=== PATIENT | male | born 2000 | race Caucasian/White ===

== ENCOUNTER 2019-04-16 15:50 | Inpatient (IN) | payer OTHER ==
[~2019-04-16] VITALS: Ht 175.3 cm; Wt 53.5 kg
[2019-04-16 16:15] VITALS: BP 129/70
[2019-04-16] MEDS ORDERED: ONDANSETRON HCL 4 MG TABLET PO PRN (18:15)
[2019-04-16] MEDS ORDERED: ACETAMINOPHEN 325 MG TABLET PO PRN (18:15)
[2019-04-16] MEDS ORDERED: MELATONIN 5 MG TABLET PO PRN (18:15)
[2019-04-16] MEDS ORDERED: HYDROCODONE/ACETAMINOPHEN 5-325 MG TABLET PO PRN (18:15)
[2019-04-16] MEDS ORDERED: HYDROCODONE/ACETAMINOPHEN 10-325 MG TABLET PO PRN (18:15)
[2019-04-16] MEDS: DOCUSATE SODIUM 100 MG CAPSULE PO SCH (20:53)
[2019-04-16] MEDS: SENNA 187 MG TABLET PO SCH (20:54)
[2019-04-16] MEDS: ERYTHROMYCIN 0.5% 3.5 GM TUBE OPHTHALMIC OINTMENT OS SCH (20:56)
[2019-04-16] MEDS: ATROPINE SULFATE 1% 15 ML OPHTHALMIC SOLUTION OS SCH (20:56)
[2019-04-16] MEDS: MUPIROCIN CALCIUM 2% 22 GM OINTMENT NASAL SCH (20:56)
[2019-04-16] MEDS: CHLORHEXIDINE GLUCONATE 0.12% 15 ML UDCUP ORAL RINSE PO SCH (20:59)
[2019-04-16] MEDS: PrednisoLONE ACETATE 1% 5 ML OPHTHALMIC SUSPENSION OS SCH (20:59)
[2019-04-16] MEDS ORDERED: BACITRACIN 0.9 GM PACKET OINTMENT TP SCH (21:00)
[2019-04-17] VITALS: BP 126/84
[2019-04-17] MEDS: MINERAL OIL/PETROLATUM,WHITE PF 3.5 GM OPHTHALMIC OINTMENT OS SCH ×4 (00:06→18:18)
[2019-04-17 07:16] LABS: BASOPHILS % (AUTO) 1.4 % (0.0-2.0); EOSINOPHILS % (AUTO) 1.6 % (1.0-6.0); HEMATOCRIT 33.7 % (41-53); HEMOGLOBIN 11.7 g/dL (13.5-17.5); LYMPHOCYTES # (AUTO) 1.5 K/uL (1.0-4.8); LYMPHOCYTES % (AUTO) 15.8 % (22.0-44.0); MEAN CORPUSCULAR HEMOGLOBIN 30.9 pg (26.0-34.0); MEAN CORPUSCULAR HGB CONC 34.7 G/dL (31.0-37.0); MEAN CORPUSCULAR VOLUME 89 fL (80-100); MONOCYTES % (AUTO) 10.9 % (2.0-9.0); NEUTROPHILS # (AUTO) 6.5 K/uL (1.8-7.7); NEUTROPHILS % (AUTO) 70.3 % (40.0-70.0); PLATELET COUNT (AUTO) 689 K/uL (150-450); RED BLOOD CELL COUNT(AUTO) 3.79 MIL/uL (4.50-5.90); RED CELL DISTRIBUTION WIDTH 13.8 % (11.5-14.5)
[2019-04-17 07:45] VITALS: BP 113/70
[2019-04-17 07:48] LABS: ALANINE AMINOTRANSFERASE 48 U/L (12-78); ALBUMIN 3.1 g/dL (3.4-5.0); ALKALINE PHOSPHATASE 121 U/L (46-116); ANION GAP 5 mmol/L (8-16); ASPARTATE AMINOTRANSFERASE 50 U/L (15-37); BILIRUBIN,TOTAL 0.3 mg/dL (0.1-1.0); CALCIUM, TOTAL 8.7 mg/dL (8.8-10.5); CARBON DIOXIDE 27 mmol/L (22-29); CHLORIDE 104 mmol/L (98-107); GLOMERULAR FILTR. RATE CALC > 60 mL/min (>60); GLUCOSE,RANDOM 104 mg/dL (70-110); POTASSIUM 4.1 mmol/L (3.5-5.1); SODIUM SERUM 136 mmol/L (136-145); TOTAL PROTEIN, SERUM 7.1 g/dL (6.4-8.2); UREA NITROGEN, BLOOD 16 mg/dL (7-18)
[2019-04-17] MEDS: ATROPINE SULFATE 1% 15 ML OPHTHALMIC SOLUTION OS SCH (08:26)
[2019-04-17] MEDS: MUPIROCIN CALCIUM 2% 22 GM OINTMENT NASAL SCH ×2 (08:26→16:56)
[2019-04-17] MEDS: ERYTHROMYCIN 0.5% 3.5 GM TUBE OPHTHALMIC OINTMENT OS SCH ×3 (08:27→16:55)
[2019-04-17] MEDS: CHLORHEXIDINE GLUCONATE 0.12% 15 ML UDCUP ORAL RINSE PO SCH ×3 (08:27→16:00)
[2019-04-17] MEDS: PrednisoLONE ACETATE 1% 5 ML OPHTHALMIC SUSPENSION OS SCH ×3 (08:27→16:56)
[2019-04-17] MEDS: DOCUSATE SODIUM 100 MG CAPSULE PO SCH (08:38)
[2019-04-17] MEDS: POLYETHYLENE GLYCOL 3350 17 GM PACKET PO SCH (08:38)
[2019-04-17] MEDS ORDERED: ENOXAPARIN SODIUM 40 MG/0.4 ML PF SYRINGE SQ SCH (09:00)
[2019-04-17] MEDS: BACITRACIN 28.4 GM OINTMENT TP SCH ×3 (09:24→16:55)
[2019-04-17 17:19] VITALS: BP 110/62
[2019-04-18] MEDS: MINERAL OIL/PETROLATUM,WHITE PF 3.5 GM OPHTHALMIC OINTMENT OS SCH ×4 (06:00→18:04)
[2019-04-18 09:00] VITALS: BP 120/59
[2019-04-18] MEDS: DOCUSATE SODIUM 100 MG CAPSULE PO SCH ×3 (09:00→21:00)
[2019-04-18] MEDS: CHLORHEXIDINE GLUCONATE 0.12% 15 ML UDCUP ORAL RINSE PO SCH ×4 (09:00→21:00)
[2019-04-18] MEDS: POLYETHYLENE GLYCOL 3350 17 GM PACKET PO SCH (09:00)
[2019-04-18] MEDS: PrednisoLONE ACETATE 1% 5 ML OPHTHALMIC SUSPENSION OS SCH ×5 (09:25→21:35)
[2019-04-18] MEDS: ATROPINE SULFATE 1% 15 ML OPHTHALMIC SOLUTION OS SCH ×3 (09:25→21:36)
[2019-04-18] MEDS: MUPIROCIN CALCIUM 2% 22 GM OINTMENT NASAL SCH ×4 (09:25→21:35)
[2019-04-18] MEDS: ERYTHROMYCIN 0.5% 3.5 GM TUBE OPHTHALMIC OINTMENT OS SCH ×5 (09:26→21:35)
[2019-04-18] MEDS: ASPIRIN 325 MG TABLET PO SCH (09:28)
[2019-04-18] MEDS: BACITRACIN 28.4 GM OINTMENT TP SCH ×5 (10:10→21:35)
[2019-04-18] MEDS: OXYBUTYNIN CHLORIDE 5 MG TABLET PO SCH ×2 (16:16→21:35)
[2019-04-18 17:53] LABS: APPEARANCE,URINE CLOUDY (CLEAR); BILIRUBIN,URINE NEGATIVE (NEGATIVE); GLUCOSE, URINE (UA) NEGATIVE (NEGATIVE); KETONES,URINE NEGATIVE (NEGATIVE); LEUKOCYTE ESTERASE ,URINE MODERATE (NEGATIVE); NITRATE,URINE POSITIVE (NEGATIVE); OCCULT BLOOD,URINE LARGE (NEGATIVE); PROTEIN,URINE SEE CONFIRM (NEGATIVE)
[2019-04-18] MEDS ORDERED: BELLADONNA ALK PR PRN (18:00)
[2019-04-18] MEDS ORDERED: OPIUM PR PRN (18:00)
[2019-04-18 19:00] LABS: SULFOSALICYLIC ACID,URINE 4+ (Negative)
[2019-04-18 19:01] LABS: BACTERIA,URINE Many /HPF (None Seen); RBC,URINE >100 /HPF (0-2); SQUAMOUS EPITHELIAL CELL,UR Few /LPF (None Seen)
[2019-04-18 20:26] VITALS: BP 125/65
[2019-04-18] MEDS: SENNA 187 MG TABLET PO SCH ×2 (21:00)
[2019-04-19] VITALS: BP 116/64
[2019-04-19] MEDS: MINERAL OIL/PETROLATUM,WHITE PF 3.5 GM OPHTHALMIC OINTMENT OS SCH ×5 (00:16→23:35)
[2019-04-19 08:25] VITALS: BP 113/59
[2019-04-19] MEDS: ASPIRIN 325 MG TABLET PO SCH (09:00)
[2019-04-19] MEDS: CHLORHEXIDINE GLUCONATE 0.12% 15 ML UDCUP ORAL RINSE PO SCH ×3 (09:00→21:00)
[2019-04-19] MEDS: MUPIROCIN CALCIUM 2% 22 GM OINTMENT NASAL SCH ×3 (09:00→22:03)
[2019-04-19] MEDS: ERYTHROMYCIN 0.5% 3.5 GM TUBE OPHTHALMIC OINTMENT OS SCH ×4 (09:00→22:03)
[2019-04-19] MEDS: DOCUSATE SODIUM 100 MG CAPSULE PO SCH ×2 (09:00→21:00)
[2019-04-19] MEDS: PrednisoLONE ACETATE 1% 5 ML OPHTHALMIC SUSPENSION OS SCH ×4 (09:00→22:04)
[2019-04-19] MEDS: POLYETHYLENE GLYCOL 3350 17 GM PACKET PO SCH (09:00)
[2019-04-19] MEDS: BACITRACIN 28.4 GM OINTMENT TP SCH ×4 (09:00→22:05)
[2019-04-19] MEDS: ATROPINE SULFATE 1% 15 ML OPHTHALMIC SOLUTION OS SCH ×2 (09:00→22:03)
[2019-04-19] MEDS: OXYBUTYNIN CHLORIDE 5 MG TABLET PO SCH ×3 (09:23→22:04)
[2019-04-19] MEDS ORDERED: IOVERSOL 350 MG/ML 150 ML VIAL ONE (14:15)
[2019-04-19] MEDS ORDERED: IOVERSOL 350 MG/ML 100 ML VIAL ONE (14:16)
[2019-04-19] MEDS ORDERED: SODIUM CHLORIDE 0.9% 250 ML IV ONE ×2 (15:31→15:41)
[2019-04-19] MEDS ORDERED: IOVERSOL 320 MG/ML 100 ML VIAL ONE ×2 (16:04)
[2019-04-19] MEDS: CefTRIAXone 1 GM/DEXTROSE 50 ML IV SCH (16:22)
[2019-04-19] MEDS ORDERED: IOVERSOL 320 MG/ML 50 ML VIAL ONE (16:38)
[2019-04-19] MEDS ORDERED: SODIUM CHLORIDE 0.9% 500 ML IV ONE (16:41)
[2019-04-19] MEDS ORDERED: SODIUM CHLORIDE 0.9% 1,000 ML ONE (16:46)
[2019-04-19 16:55] VITALS: BP 118/60
[2019-04-19] MEDS: KETOROLAC TROMETHAMINE 30 MG/ML VIAL IVP SCH ×2 (16:55→23:45)
[2019-04-19] MEDS: SENNA 187 MG TABLET PO SCH (21:00)
[2019-04-20 00:25] VITALS: BP 107/65
[2019-04-20] MEDS: KETOROLAC TROMETHAMINE 30 MG/ML VIAL IVP SCH ×3 (06:00→18:00)
[2019-04-20] MEDS: MINERAL OIL/PETROLATUM,WHITE PF 3.5 GM OPHTHALMIC OINTMENT OS SCH ×4 (06:00→23:38)
[2019-04-20 08:00] VITALS: BP 104/61
[2019-04-20] MEDS: ASPIRIN 325 MG TABLET PO SCH (08:55)
[2019-04-20] MEDS: OXYBUTYNIN CHLORIDE 5 MG TABLET PO SCH ×3 (08:55→20:49)
[2019-04-20] MEDS: 0.9% SODIUM CHLORIDE 10 ML SYRINGE IVP SCH ×3 (08:56→23:39)
[2019-04-20] MEDS: DOCUSATE SODIUM 100 MG CAPSULE PO SCH ×2 (09:00→21:00)
[2019-04-20] MEDS: CHLORHEXIDINE GLUCONATE 0.12% 15 ML UDCUP ORAL RINSE PO SCH ×3 (09:00→21:00)
[2019-04-20] MEDS: POLYETHYLENE GLYCOL 3350 17 GM PACKET PO SCH (09:00)
[2019-04-20] MEDS: ERYTHROMYCIN 0.5% 3.5 GM TUBE OPHTHALMIC OINTMENT OS SCH ×4 (09:05→20:49)
[2019-04-20] MEDS: PrednisoLONE ACETATE 1% 5 ML OPHTHALMIC SUSPENSION OS SCH ×4 (09:06→20:49)
[2019-04-20] MEDS: BACITRACIN 28.4 GM OINTMENT TP SCH ×4 (09:07→20:50)
[2019-04-20] MEDS: MUPIROCIN CALCIUM 2% 22 GM OINTMENT NASAL SCH ×3 (09:13→20:48)
[2019-04-20] MEDS: ATROPINE SULFATE 1% 15 ML OPHTHALMIC SOLUTION OS SCH ×2 (09:14→20:49)
[2019-04-20] MEDS: CefTRIAXone 1 GM/DEXTROSE 50 ML IV SCH (16:51)
[2019-04-20 17:00] VITALS: BP 95/61
[2019-04-20] MEDS: SENNA 187 MG TABLET PO SCH (21:00)
[2019-04-20 23:50] VITALS: BP 123/68
[2019-04-21] MEDS: KETOROLAC TROMETHAMINE 30 MG/ML VIAL IVP SCH ×2 (06:00)
[2019-04-21] MEDS: MINERAL OIL/PETROLATUM,WHITE PF 3.5 GM OPHTHALMIC OINTMENT OS SCH ×5 (06:00→23:27)
[2019-04-21 08:30] VITALS: BP 93/69
[2019-04-21] MEDS: PrednisoLONE ACETATE 1% 5 ML OPHTHALMIC SUSPENSION OS SCH ×4 (09:00→21:33)
[2019-04-21] MEDS: POLYETHYLENE GLYCOL 3350 17 GM PACKET PO SCH (09:00)
[2019-04-21] MEDS: MUPIROCIN CALCIUM 2% 22 GM OINTMENT NASAL SCH ×3 (09:00→21:32)
[2019-04-21] MEDS: OXYBUTYNIN CHLORIDE 5 MG TABLET PO SCH ×3 (09:00→21:33)
[2019-04-21] MEDS: ASPIRIN 325 MG TABLET PO SCH (09:00)
[2019-04-21] MEDS: ERYTHROMYCIN 0.5% 3.5 GM TUBE OPHTHALMIC OINTMENT OS SCH ×8 (09:00→21:32)
[2019-04-21] MEDS: CHLORHEXIDINE GLUCONATE 0.12% 15 ML UDCUP ORAL RINSE PO SCH ×3 (09:00→21:00)
[2019-04-21] MEDS: DOCUSATE SODIUM 100 MG CAPSULE PO SCH ×2 (09:00→21:00)
[2019-04-21] MEDS: BACITRACIN 28.4 GM OINTMENT TP SCH ×4 (09:01→21:33)
[2019-04-21] MEDS: ATROPINE SULFATE 1% 15 ML OPHTHALMIC SOLUTION OS SCH ×2 (09:01→21:33)
[2019-04-21] MEDS: 0.9% SODIUM CHLORIDE 10 ML SYRINGE IVP SCH ×2 (09:02→16:00)
[2019-04-21] MEDS: FAMOTIDINE 20 MG TABLET PO SCH (09:04)
[2019-04-21] MEDS ORDERED: KETOROLAC TROMETHAMINE 30 MG/ML VIAL IVP SCH (09:44)
[2019-04-21 16:00] VITALS: BP 113/63
[2019-04-21] MEDS ORDERED: KETOROLAC TROMETHAMINE 30 MG/ML VIAL IVP PRN (16:00)
[2019-04-21] MEDS: SENNA 187 MG TABLET PO SCH (21:00)
[2019-04-21] MEDS: SULFAMETHOX/TRIMETH DS 800-160 MG/TABLET PO SCH (21:33)
[2019-04-21 23:46] VITALS: BP 119/62
[2019-04-22] MEDS: MINERAL OIL/PETROLATUM,WHITE PF 3.5 GM OPHTHALMIC OINTMENT OS SCH ×3 (06:00→20:55)
[2019-04-22 08:00] VITALS: BP 117/65
[2019-04-22] MEDS: PrednisoLONE ACETATE 1% 5 ML OPHTHALMIC SUSPENSION OS SCH ×4 (08:26→20:55)
[2019-04-22] MEDS: ATROPINE SULFATE 1% 15 ML OPHTHALMIC SOLUTION OS SCH ×2 (08:26→20:56)
[2019-04-22] MEDS: ASPIRIN 325 MG TABLET PO SCH (08:26)
[2019-04-22] MEDS: OXYBUTYNIN CHLORIDE 5 MG TABLET PO SCH ×3 (08:26→20:52)
[2019-04-22] MEDS: SULFAMETHOX/TRIMETH DS 800-160 MG/TABLET PO SCH ×2 (08:26→20:52)
[2019-04-22] MEDS: BACITRACIN 28.4 GM OINTMENT TP SCH ×4 (08:27→20:54)
[2019-04-22] MEDS: FAMOTIDINE 20 MG TABLET PO SCH (08:27)
[2019-04-22] MEDS: MUPIROCIN CALCIUM 2% 22 GM OINTMENT NASAL SCH ×3 (08:29→20:55)
[2019-04-22] MEDS: DOCUSATE SODIUM 100 MG CAPSULE PO SCH ×2 (08:31→20:56)
[2019-04-22] MEDS: ERYTHROMYCIN 0.5% 3.5 GM TUBE OPHTHALMIC OINTMENT OS SCH ×4 (08:31→20:55)
[2019-04-22] MEDS: POLYETHYLENE GLYCOL 3350 17 GM PACKET PO SCH (08:31)
[2019-04-22] MEDS: CHLORHEXIDINE GLUCONATE 0.12% 15 ML UDCUP ORAL RINSE PO SCH ×3 (08:31→20:57)
[2019-04-22] MEDS ORDERED: FAMO20 PO (14:42)
[2019-04-22] MEDS ORDERED: SULF1TAB42 PO (14:45)
[2019-04-22] MEDS ORDERED: OXYB5 PO (14:45)
[2019-04-22] MEDS ORDERED: PRED5DRO25 OS (14:49)
[2019-04-22] MEDS ORDERED: ERYT3.5O8 OS (14:49)
[2019-04-22] MEDS ORDERED: BACI30OI6 TP (14:57)
[2019-04-22] MEDS ORDERED: MUPI1OIN5 NASAL (15:00)
[2019-04-22 19:21] VITALS: BP 126/56
[2019-04-22] MEDS: SENNA 187 MG TABLET PO SCH (20:57)
[2019-04-23] MEDS: MINERAL OIL/PETROLATUM,WHITE PF 3.5 GM OPHTHALMIC OINTMENT OS SCH ×2 (06:00)
[2019-04-23 08:30] VITALS: BP 105/68
[2019-04-23] MEDS ORDERED: ATRO2DRO OS (08:48)
[2019-04-23] MEDS ORDERED: ERYT3.5O8 TP (08:48)
[2019-04-23] MEDS ORDERED: [UNRECOGNIZED DRUG - CODE] TP (08:48)
[2019-04-23] MEDS: DOCUSATE SODIUM 100 MG CAPSULE PO SCH (09:00)
[2019-04-23] MEDS: POLYETHYLENE GLYCOL 3350 17 GM PACKET PO SCH (09:00)
[2019-04-23] MEDS: ATROPINE SULFATE 1% 15 ML OPHTHALMIC SOLUTION OS SCH (09:00)
[2019-04-23] MEDS: CHLORHEXIDINE GLUCONATE 0.12% 15 ML UDCUP ORAL RINSE PO SCH (09:00)
[2019-04-23] MEDS: OXYBUTYNIN CHLORIDE 5 MG TABLET PO SCH (09:03)
[2019-04-23] MEDS: MUPIROCIN CALCIUM 2% 22 GM OINTMENT NASAL SCH (09:03)
[2019-04-23] MEDS: FAMOTIDINE 20 MG TABLET PO SCH (09:03)
[2019-04-23] MEDS: SULFAMETHOX/TRIMETH DS 800-160 MG/TABLET PO SCH (09:03)
[2019-04-23] MEDS: ASPIRIN 325 MG TABLET PO SCH (09:03)
[2019-04-23] MEDS: ERYTHROMYCIN 0.5% 3.5 GM TUBE OPHTHALMIC OINTMENT OS SCH (09:04)
[2019-04-23] MEDS: BACITRACIN 28.4 GM OINTMENT TP SCH (09:04)
[2019-04-23] MEDS: PrednisoLONE ACETATE 1% 5 ML OPHTHALMIC SUSPENSION OS SCH (09:04)
== END 2019-04-23 10:20 | disposition home or self-care (01) | DRG 964 ==
LOC: 2WR 15:50
DX: S06.5X0A Traumatic subdural hemorrhage without loss of consciousness, initial encounter (principal); S32.512A Fracture of superior rim of left pubis, initial encounter for closed fracture; N39.0 Urinary tract infection, site not specified; S32.511A Fracture of superior rim of right pubis, initial encounter for closed fracture; S32.19XA Other fracture of sacrum, initial encounter for closed fracture; S02.32XA Fracture of orbital floor, left side, initial encounter for closed fracture; R13.12 Dysphagia, oropharyngeal phase; S02.19XA Other fracture of base of skull, initial encounter for closed fracture; S02.40DA Maxillary fracture, left side, initial encounter for closed fracture; F43.23 Adjustment disorder with mixed anxiety and depressed mood; N32.89 Other specified disorders of bladder
CPT/HCPCS: 74430; 87081; 87086; 92507; 92523; 97110; 97116; 97163; 97165; 97530; 97535; 99366; J0696; J1650; J1885; J7030; J7040; J7050